=== PATIENT | male | born 1995 | race African-American/Black ===

== ENCOUNTER 2018-09-18 14:55 | Emergency (ER) | payer OTHER ==
[~2018-09-18] VITALS: Ht 177.8 cm; Wt 84.4 kg
[2018-09-18] MEDS ORDERED: predniSONE 20 MG TABLET PO ONE (15:30)
[2018-09-18] MEDS ORDERED: predniSONE 20 MG TABLET ONE (15:32)
[2018-09-18 16:18] VITALS: BP 120/71
== END 2018-09-18 16:19 | disposition home or self-care (01) ==
LOC: ER 14:58
DX: J45.901 Unspecified asthma with (acute) exacerbation (principal); R07.89 Other chest pain; R94.31 Abnormal electrocardiogram [ECG] [EKG]
CPT/HCPCS: 71045-TC; A4606; Z7610